=== PATIENT | female | born 1955 | race Caucasian/White ===

== ENCOUNTER 2023-06-24 02:47 | Emergency (ER) | payer MEDICARE ==
[2023-06-24 03:58] LABS: BASOPHILS # (AUTO) 0.1 10^3/uL (0.0-0.1); BASOPHILS % (AUTO) 0.6 %; EOSINOPHILS # (AUTO) 0.1 10^3/uL (0.0-0.7); EOSINOPHILS % (AUTO) 1.3 %; HCT - HEMATOCRIT 38.8 % (37.0-47.0); HGB - HEMOGLOBIN 12.9 g/dL (12.0-16.0); LYMPHOCYTES # (AUTO) 1.4 10^3/uL (1.5-3.5); LYMPHOCYTES % (AUTO) 18.7 %; MEAN CORPUSCULAR HEMOGLOBIN 29.1 pg (27.0-31.0); MEAN CORPUSCULAR HGB CONC 33.2 g/dL (32.0-36.0); MEAN CORPUSCULAR VOLUME 87.4 fL (81.0-99.0); MEAN PLATELET VOLUME 9.4 fL (7.9-10.8); MONOCYTES # (AUTO) 0.7 10^3/uL (0.0-1.0); MONOCYTES % (AUTO) 9.5 %; NEUTROPHILS # (AUTO) 5.3 10^3/uL (1.5-6.6); NEUTROPHILS % (AUTO) 69.1 %; PLT - PLATELET COUNT 219 10^3/uL (130-450); RED BLOOD COUNT 4.44 10^6/uL (4.20-5.40); RED CELL DISTRIBUTION WIDTH 12.9 % (12.0-15.0); WHITE BLOOD COUNT 7.7 x10^3/uL (4.8-10.8)
[2023-06-24 04:31] LABS: TROPONIN I HIGH SENSITIVITY 16.4 ng/L (2.3-14.8)
[2023-06-24 05:10] LABS: ALBUMIN 3.9 g/dL (3.2-5.5); ALBUMIN/GLOBULIN RATIO 1.3 (1.0-2.2); BILIRUBIN,TOTAL 0.4 mg/dL (0.2-1.0); CALCIUM 10.4 mg/dL (8.5-10.3); CREATININE 0.6 mg/dL (0.6-1.3); POTASSIUM 3.4 mmol/L (3.5-4.5); TOTAL PROTEIN 6.8 g/dL (6.4-8.9)
--- NOTE | 2023-06-24 05:24 | ED Physician Documentation ---
PD HPI CHEST PAIN - Stated complaint Stated Complaint: CHEST PX - Chief complaint Chief Complaint: Cardiac - History obtained from History obtained from: Patient - Additional information Additional information: HPI from patient. Patient complains of midline chest pain and rapid and irregular palpitations that woke her from sleep at approximately 1:15 AM this morning. She has a cardiac monitoring device at home which was able to capture a rhythm strip that was irregularly irregular and a heart rate of 170 (she shows me the images of a one-lead strip on her iphone). The symptoms did not improve with tums and zantac but by the time of my evaluation her, the symptoms have resolved. She says she has had similar episodes of palpitations in the past but, despite having cardiac-monitoring devices 2 separate occasions, no dysrhythmias have been captured on monitoring. Review of Systems Cardiac: reports: Chest pain / pressure, Palpitations. denies: Pedal edema, Calf pain Respiratory: reports: Reviewed and negative Musculoskeletal: denies: Extremity swelling PD PAST MEDICAL HISTORY - Past Medical History Past Medical History: Yes Cardiovascular: Hypertension, High cholesterol Psych: None - Past Surgical History Past Surgical History: Yes - Present Medications Home Medications: Ambulatory Orders Medication Instructions Recorded Confirmed Calcium Carbonate [Calcium] 600 mg PO DAILY 06/24/23 06/24/23 Glucosamine HCl/Chondroitin [place] 1 cap PO DAILY 06/24/23 06/24/23 [Glucosamine-Chondroitin Cap] Losartan [Cozaar] 50 mg PO BID 06/24/23 06/24/23 [place]-3/Dha/Epa/Fish Oil [Fish Oil 1 each PO DAILY 06/24/23 06/24/23 1,000 mg Softgel] Pantoprazole [Protonix] 40 mg PO DAILY 06/24/23 06/24/23 Simvastatin [Zocor] 20 mg PO QPM 06/24/23 06/24/23 hydroCHLOROthiazide [Hydrodiuril] 25 mg PO DAILY 06/24/23 06/24/23 - Allergies Allergies/Adverse Reactions: Allergies Allergy/AdvReac Type Severity Reaction Status Date / Time lisinopril Allergy Respiratory Verified 06/24/23 03:20 ketamine AdvReac Hallucinati Verified 06/24/23 03:24 ons - Social History Does the pt smoke?: No Smoking Status: Never smoker Does the pt drink ETOH?: Yes Does the pt have substance abuse?: No - Immunizations Immunizations are current?: Yes - POLST Patient has POLST: No PD ED PE NORMAL - Vitals Vital signs reviewed: Yes - General General: Alert and oriented X 3, No acute distress, Well developed/nourished - Cardiac Cardiac: RRR, No murmur - Respiratory Respiratory: No respiratory distress, Clear bilaterally - Abdomen Abdomen: Soft, Non tender - Extremities Extremities: No edema Results - Vitals Vitals: Oxygen O2 Source Room air - EKG (time done) No standard instances EKG releavant findings:: EKG personally interpreted by author of this note. Relevant findings are: Rate: Rate (enter#) (95) Rhythm: NSR [place]: LAD Intervals: Normal [place] QRS: LVH Ischemia: Normal ST segments, Q waves (III, aVF) - Labs Labs: Laboratory Tests 06/24/23 06/24/23 06/24/23 03:48 03:48 06:50 WBC 7.7 RBC 4.44 Hgb 12.9 Hct 38.8 MCV 87.4 MCH 29.1 MCHC 33.2 RDW 12.9 Plt Count 219 MPV 9.4 Neut # (Auto) 5.3 Lymph # (Auto) 1.4 L [place] # (Auto) 0.7 Eos # (Auto) 0.1 Baso # (Auto) 0.1 Absolute Nucleated RBC 0.00 Nucleated RBC % 0.0 Sodium 142 Potassium 3.4 L Chloride 108 Carbon Dioxide 26 Anion Gap 8.0 BUN 17 Creatinine 0.6 Estimated GFR (MDRD) 99 Glucose 136 H Calcium 10.4 H Total Bilirubin 0.4 AST 19 ALT 29 Alkaline Phosphatase 98 Troponin I High Sens 16.4 H* 20.1 H* Total Protein 6.8 Albumin 3.9 Globulin 2.9 Albumin/Globulin Ratio 1.3 Lipase 37 - Rads (name of study) chest xray Relevant Findings:: Prelim report reviewed, See rad report PD Medical Decision Making - ED course Complexity details: reviewed results, re-evaluated patient, considered differential, d/w patient ED course: No concerning findings on EKG; EKG as well as cardiac monitoring throughout ER stay evidence of normal sinus rhythm. She does show me a 1-lead rhythm strip that was captured on a home cardiac-monitoring device that she was able to then transmit images up to her iPhone; the rhythm strip is clearly rapid atrial fibrillation. The rapid atrial fibrillation resolved prior to ED arrival, and her chest pain resolved after she was triaged but prior to my H&P. Normal CBC. Minimal hypokalemia (3.4) on ER abdominal panel. High-sensitivity troponin is 16.4, with a 2-hour repeat of 20.1, representing an insignificant increase from the first troponin. Results of these tests are discussed with the patient. Return precautions are also reviewed prior to discharge. She is advised to follow-up with her manager membership, next available appointment. I emphasized the importance of showing the rhythm strip to the manager membership Departure - Departure Disposition: 01 Home, Self Care Clinical Impression: Paroxysmal atrial fibrillation Condition: Good Instructions: ED Afib Comments: There are no concerning or diagnostic findings on tonight's tests including the blood test, EKG, and the chest x-ray. As we discussed, the cardiac enzyme (blood test) was elevated just above the normal range, but there was no significant change on the repeat test.Although your heart rate and rhythm were normal during your ER stay, the rhythm strip you showed me on your iPhone is consistent with atrial fibrillation. At this time, you do not need specific treatment for this such as a blood thinner, but should follow-up with your primary care provider and/or your manager membership, next available appointment. Forms: PCP List Discharge Date/Time: 06/24/23 08:06
[2023-06-24 07:18] VITALS: O2SAT 98
--- NOTE | 2023-06-24 08:03 | XRAY Report ---
PROCEDURE: Chest 1 View X-Ray INDICATIONS: Chest pain TECHNIQUE: One view of the chest was acquired. COMPARISON: None. FINDINGS: Surgical changes and devices: None. Lungs and pleura: No pleural effusions or pneumothorax. Low inspiration with central vascular crowdi ng Left lower lobe segmental atelectasis. Lungs are otherwise clear. Mediastinum: Mediastinal contours appear normal. Heart size is normal. Bones and chest wall: No suspicious bony lesions. Overlying soft tissues appear unremarkable. IMPRESSION: Low inspiration with central vascular crowding and subsegmental atelectasis. The lungs are otherwise clear. Findings are concordant with preliminary interpretation provided by [facility]. Reviewed by: Britton Sunshine MD on 06/24/2023 8:01 AM PST Approved by: Britton Sunshine MD on 06/24/2023 8:01 AM PST Station ID: [id number]
[2023-06-24 08:12] VITALS: BP 118/84
== END 2023-06-24 08:06 | disposition home or self-care (01) ==
LOC: ED 02:47
DX: I48.0 Paroxysmal atrial fibrillation (principal); I10 Essential (primary) hypertension; E78.00 Pure hypercholesterolemia, unspecified; Z79.899 Other long term (current) drug therapy
CPT/HCPCS: 36415; 80053; 83690; 84484; 85025; 93005; 99283; 99284